=== PATIENT | female | born 1960 | race Caucasian/White ===

== ENCOUNTER 2016-11-05 09:13 | Day surgery (SDC) | payer BC ==
[~2016-11-05] VITALS: Ht 152.4 cm; Wt 115.1 kg
[2016-11-05] MEDS ORDERED: LIDOCAINE 2% (SDV) 5 ML INJ ONE (10:00)
[2016-11-05] MEDS ORDERED: MIDAZOLAM 1 MG/ML 2 ML INJ ONE (10:00)
[2016-11-05] MEDS ORDERED: PROPOFOL 20 ML ONE (10:00)
[2016-11-05] MEDS ORDERED: METFORMIN PO (10:06)
[2016-11-05] MEDS ORDERED: LIPITOR PO (10:06)
[2016-11-05] MEDS ORDERED: IBUPROFEN (10:06)
[2016-11-05] MEDS ORDERED: TRAMADOL PO (10:06)
[2016-11-05] MEDS ORDERED: INSULIN (10:06)
[2016-11-05] MEDS ORDERED: GABAPENTIN PO (10:06)
[2016-11-05 10:11] VITALS: Ht 152.4 cm; Wt 115.1 kg
[2016-11-05 10:15] VITALS: BP 124/72; PULSE 75; RESP 14
--- NOTE | 2016-11-05 10:46 | OPPN ---
Date/Time of Note Date/Time of Note DATE: 11/05/16 TIME: 10:45 Operative Report Preoperative Diagnosis Screening Postoperative Diagnosis Small transverse colon polyp was removed Internal hemorrhoids Operation/Procedure Performed Colonoscopy and biopsy Provider: TORIE MARTINEZ MD Anesthesia Type: MAC Estimated blood loss: none Transfusion Required: no Specimens Transverse colon polyp Grafts/Implants: none Complications: no TORIE MARTINEZ MD Nov 05, 2016 10:46
--- NOTE | 2016-11-05 11:07 | GILP ---
DATE OF PROCEDURE: 11/05/2016 PROCEDURE PERFORMED: Colonoscopy and biopsy. SURGEON: Joshua Freitas MD. PREOPERATIVE DIAGNOSIS: Screening colonoscopy. POSTOPERATIVE DIAGNOSES: 1. Colonoscopy all the way to the cecum. 2. Small transverse colon polyp was removed using the biopsy forceps. 3. Internal hemorrhoids. INDICATION: Ms. Isabel Cuellar is a 56-year-old female patient who was scheduled for screening colonoscopy. The procedure and possible complications were well explained to the patient. She understood and consented to the procedure. DESCRIPTION OF PROCEDURE: Under the influence under the influence of anesthesia, the colonoscope was carefully introduced in the rectum and under direct vision, it was advanced all the way to the cecum. FINDINGS: The patient had a small transverse colon polyp and it was removed using the biopsy forceps. The patient had internal hemorrhoids. She tolerated the procedure very well. There was no complication from the procedure. At the end of procedure, she was awake with stable vital signs and she was discharged home in the care of her family. IMPRESSION: 1. Colonoscopy all the way to the cecum. 2. Small transverse colon polyp was removed. 3. Internal hemorrhoids. PLAN: Screening colonoscopy in 10 years. Dictated By: MD YOLANDE Kay/con/dionne /Document#: [id number]
== END 2016-11-05 16:11 | disposition home or self-care (01) ==
LOC: GIL 09:13
PROVIDERS: ATTEND Internal Medicine Gastroenterology
DX: Z12.11 Encounter for screening for malignant neoplasm of colon (principal); D12.3 Benign neoplasm of transverse colon; K64.8 Other hemorrhoids; E11.9 Type 2 diabetes mellitus without complications; I10 Essential (primary) hypertension; E78.5 Hyperlipidemia, unspecified; E66.9 Obesity, unspecified; Z68.42 Body mass index [BMI] 45.0-49.9, adult
CPT/HCPCS: 45380; 82962; 88305; J2250; Z7610

== ENCOUNTER 2018-07-22 09:21 | Inpatient (IN) | payer BC ==
[~2018-07-22] VITALS: Ht 154.9 cm; Wt 117.8 kg
[2018-07-22] VITALS (33 sets, daily range): BP systolic 97–145; BP diastolic 55–79; PULSE 66–105; RESP 12–23; Ht 154.9 cm; Wt 117.8 kg
[~2018-07-22 09:21] MED LIST: GABAPENTIN PO; IBUPROFEN; INSULIN; LIPITOR PO; METFORMIN PO; TRAMADOL PO
[2018-07-22] MEDS ORDERED: METF100010 PO (10:35)
[2018-07-22] MEDS ORDERED: ATOR20TA38 PO (10:35)
[2018-07-22] MEDS ORDERED: GABA-526 PO (10:36)
[2018-07-22] MEDS ORDERED: INSU100I33 SC (10:39)
[2018-07-22] MEDS ORDERED: LIRA0.6P2 SQ (10:40)
[2018-07-22] MEDS ORDERED: POTA10TA37 PO (10:40)
[2018-07-22] MEDS ORDERED: SPIR25TA PO (10:41)
[2018-07-22] MEDS ORDERED: SOD CHLORIDE 0.9% 1,000 ML IV SCH (11:00)
[2018-07-22] MEDS ORDERED: CEFAZOLIN 2 GM/50 ML (PMX) 50 ML IVPB ONE (11:00)
--- NOTE | 2018-07-22 14:13 | PREAC ---
Date/Time of Note Date/Time of Note DATE: 07/22/18 TIME: 14:10 Anesthesia Eval and Record Evaluation Time Pre-Procedure Interview DATE: 07/22/18 TIME: 14:10 Age 57 Sex female NPO: 8 hrs Preoperative diagnosis right breast ca Planned procedure right radical mastectomy Past Medical History Past Medical History: Includes Endo: Diabetes Musculoskeletal: Osteoarthritis GI: Morbid obesity Surgery & Anesthesia Issues No known issue Meds Anticoagulation: No Beta Irina within 24 hr: No Reason Beta Irina not given: Pt. not on B-Irina Reported Medications Spironolactone* (Aldactone*) 25 Mg Tablet, 25 MG PO DAILY, #30 TAB 07/22/18 Potassium Chloride* (K-Dur*) 10 Meq Tab.prt.sr, 10 MEQ PO DAILY, TAB 07/22/18 Liraglutide (Victoza 3-Jose) 0.6 Mg/0.1 Ml Pen.injctr, 1.8 MG SQ DAILY, SYR 07/22/18 Insulin Glargine,Hum.rec.anlog (Basaglar Kwkinsey U-100) 100 Unit/1 Ml Insuln.pen, 40 UNIT SC QHS, EA 07/22/18 Gabapentin* (Gabapentin*) 600 Mg Tablet, 600 MG PO TID, #90 TAB 07/22/18 Metformin Hcl* (Metformin Hcl*) 1,000 Mg Tablet, 1000 MG PO WITH BREAKFAST DINNE, #60 TAB 07/22/18 Atorvastatin Calcium* (Atorvastatin Calcium*) 20 Mg Tablet, 20 MG PO QHS, #30 TAB 07/22/18 Discontinued Reported Medications [Gabapentin] No Conflict Check, PO 11/05/16 [Lipitor] No Conflict Check, PO 11/05/16 [Tramadol] No Conflict Check, PO 11/05/16 [Ibuprofen] No Conflict Check, 800 MG 11/05/16 [Insulin] No Conflict Check 11/05/16 [Metformin] No Conflict Check, PO 11/05/16 Current Medications Sodium Chloride 1,000 ml @ 75 mls/hr [id number] IV ; Start 07/22/18 at 11:00 Meds reviewed: Yes Allergies Coded Allergies: No Known Allergy (Unverified , 07/22/18) Allergies Reviewed: Yes Labs/Studies Labs Reviewed: Reviewed by anesthesiologist Result Diagram: 07/22/18 1024 07/22/18 1024 Laboratory Tests 07/22/18 10:24 test: N/A Studies: ECG, CXR Pre-procedure Exam Last vitals Vital Signs Date Temp Pulse Resp B/P (MAP) Pulse Ox O2 O2 Flow FiO2 Time Delivery Rate 07/22/18 97.8 85 16 117/71 98 10:37 (86) Airway: Adequate mouth opening, Adequate thyromental dist Mallampati: Mallampati II Teeth: Normal Lung: Normal Heart: Normal ASA Physical Status ASA physical status: 3 Emergency: None Planned Anesthetic General/MAC: LMA Planned Pain Management Parenteral pain med Pre-operative Attestations Prior to commencing anesthesia and surgery, the patient was re-evaluated, there was verification of: *The patient's identity *The results of appropriate recent lab work and preoperative vital signs *The above evaluation not changing prior to induction *Anesthetic plan, risk benefits, alternative and complications discussed with patient/family; questions answered; patient/family understands, accepts and wishes to proceed. BRYN HARE July 22, 2018 14:13
[2018-07-22] MEDS ORDERED: PROPOFOL 20 ML ONE (14:30)
[2018-07-22] MEDS ORDERED: LIDOCAINE 2% (SDV) 5 ML INJ ONE (14:47)
[2018-07-22] MEDS ORDERED: ROCURONIUM 50 MG INJ ONE (14:47)
[2018-07-22] MEDS ORDERED: CEFAZOLIN 1 GM INJ ONE (14:48)
[2018-07-22] MEDS ORDERED: DEXAMETHASONE 4 MG/ML 5 ML INJ ONE (14:50)
[2018-07-22] MEDS ORDERED: ONDANSETRON 4 MG INJ ONE (14:50)
[2018-07-22] MEDS ORDERED: D5W-0.45 NACL + KCL 20 MEQ 1,000 ML IV SCH (15:58)
--- NOTE | 2018-07-22 15:58 | SIPON ---
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
[2018-07-22] MEDS ORDERED: morphine 2 MG INJ IV PRN (16:00)
[2018-07-22] MEDS ORDERED: ONDANSETRON 4 MG INJ IV PRN ×2 (16:00→16:30)
[2018-07-22] MEDS ORDERED: ACETAMINOPHEN 1000MG/100ML IV 100 ML IVPB PRN (16:00)
[2018-07-22] MEDS ORDERED: GLYCOPYRROLATE 0.4 MG INJ ONE (16:02)
[2018-07-22] MEDS ORDERED: NEOSTIGMINE 3 MG/3 ML SYRINGE ONE (16:02)
[2018-07-22] MEDS ORDERED: ALBUTEROL 0.083% (NEB) 2.5 MG/3 ML AMP HHN PRN (16:30)
[2018-07-22] MEDS ORDERED: DIPHENHYDRAMINE 50 MG INJ IV PRN (16:30)
[2018-07-22] MEDS ORDERED: hydrALAzine 20 MG INJ IV PRN (16:30)
[2018-07-22] MEDS ORDERED: HYDROmorphONE 1 MG/5 ML IV SYRINGE IV PRN ×3 (16:30)
[2018-07-22] MEDS ORDERED: OXYCODONE/ACETAMINOPHEN (5/325) TAB PO PRN ×2 (16:30)
[2018-07-22] MEDS ORDERED: LABETALOL HCL 20MG INJ IV PRN (16:30)
[2018-07-22] MEDS ORDERED: METOCLOPRAMIDE 10 MG INJ IV PRN (16:30)
[2018-07-22] MEDS ORDERED: FENTAnyl 50 MCG/ML VIAL IV PRN ×3 (16:30)
[2018-07-22] MEDS ORDERED: EPHEDrine 25 MG/5 ML SYG IV PRN (16:30)
[2018-07-22] MEDS ORDERED: MEPERIDINE 25 MG INJ IV PRN (16:30)
[2018-07-22] MEDS ORDERED: MIDAZOLAM 1 MG/ML 2 ML INJ IV PRN (16:30)
--- NOTE | 2018-07-22 17:14 | OPR ---
DATE OF OPERATION: 07/22/2018 PREOPERATIVE DIAGNOSIS: Extensive ductal carcinoma in situ, right breast. POSTOPERATIVE DIAGNOSIS: Extensive ductal carcinoma in situ, right breast. OPERATION PERFORMED: Right modified radical mastectomy. ANESTHESIA: General. ANESTHESIOLOGIST: Dr. Diamond. SURGEON: Bennett Salmeron MD COOK HELPER MEAT: Kavon Tobar MD INDICATIONS FOR PROCEDURE: The patient is a 57-year-old female who underwent surveillance mammograph y and was found to have extensive and diffuse calcifications spanning a large area of her right breas t. Biopsy confirmed ductal carcinoma in situ. There was a second area away from the primary site, w hich also was very suspicious. This area was not amenable to sterotactic biopsy due to its proximity of the chest wall. However, the patient made the decision that regardless, she wanted to undergo ma stectomy and due to the fact that there was extensive DCIS and possible invasion, decision was made a lso to perform a level 1 lymph node dissection. DESCRIPTION OF PROCEDURE: The patient was brought to the operating theater, placed under general ane sthesia. The right breast and axillary region was prepped and draped in usual sterile fashion. A ge nerous elliptical incision was demarcated around the nipple areolar complex a significant amoun t of the overlying breast skin. Incision was carried out with 15 blade scalpel. Subcutaneous tissue was dissected with cautery. The skin edges were then elevated with Allis Rashel clamps and skin flap s were created using cautery, first superiorly to the clavicle, then medially to the sternal border, inferiorly to the inframammary fold and laterally until the latissimus dorsi muscle was identified th roughout its course. Mastectomy then took place from medial to lateral using cautery at the border o f the pectoralis major muscle. The pectoralis minor muscle was identified. The clavipectoral fascia was incised. A limited level 1 axillary dissection then took place using a combination of cautery a nd the LigaSure device, taking care to preserve the intercostal brachial nerves. Final connective ti ssue attachments to latissimus dorsi muscle were then transected with cautery. Specimen was removed, oriented and sent for permanent pathologic analysis. The wound was irrigated. Minimal residual ble eding was controlled with cautery. Two #10 [place] Alfredo-You drains were then brought through the right mid axillary line, one was cut to size and laid within the axilla, the other was cut to size a nd laid over the pectoralis major muscle. Both drains were secured in place with 2-0 nylon sutures i n standard fashion. The skin was then reapproximated with a deep dermal layer of 4-0 Vicryl sutures in interrupted fashion, followed by final skin approximation with skin josh. The patient tolerate d procedure well. Total blood loss was approximately 50 mL. There were no complications. The patie nt was transported in stable condition to the recovery room where circumferential compression dressin g was applied. Dictated By: BENNETT MADSEN/JANICE Conf#: [id number] DID#: [id number]
[2018-07-22] MEDS ORDERED: KETOROLAC 30 MG INJ IV PRN (20:30)
[2018-07-22] MEDS ORDERED: INSULIN GLARGINE [LANtus] 3 ML PEN SC SCH ×2 (21:00→22:00)
[2018-07-22] MEDS: 1/2 NS + KCL 20 MEQ 1,000 ML IV SCH (22:02)
[2018-07-22] MEDS: ATORVASTATIN 20 MG TAB PO SCH (22:03)
[2018-07-22] MEDS: INSULIN ASPART [NOVOLOG] 3 ML PEN SC SCH (22:06)
[2018-07-22] MEDS: INSULIN GLARGINE [LANTus] (100 UNITS/ML) SYG SC SCH (22:39)
[2018-07-22] MEDS: HYDROCODONE/APAP (5/325) TAB PO PRN (23:54)
[2018-07-23] VITALS (7 sets, daily range): BP systolic 86–114; BP diastolic 50–63; PULSE 65–102; RESP 17–20
[2018-07-23] MEDS: HYDROCODONE/APAP (5/325) TAB PO PRN (01:35)
--- NOTE | 2018-07-23 02:27 | HP ---
DATE OF ADMISSION: 07/22/2018 CHIEF COMPLAINT AND HISTORY OF PRESENT ILLNESS: The patient is a 57-year-old female with history of hypertension, diabetes, dyslipidemia, morbidly obese with a BMI of 49.1, weight of 117 kg. The mary segura was seen by Dr. Salmeron as an outpatient and after she underwent surveillance mammography, the mary segura was found to have extensive and diffuse calcification spanning a large area of her right breast. Biopsy confirmed ductal carcinoma in situ. There was second area from the primary site which was als o very suspicious; however, this area was not amenable to sterotactic biopsy due to its proximity to the chest wall. The patient was brought into hospital today and underwent right modified radical mas tectomy. The patient is being admitted for further evaluation and management. No previous history o f coronary artery disease. No history of congestive heart failure. The patient denied any vomiting. No recent fever or chills. The patient did not have any vomiting since admission. The patient den ied any previous history of stroke. In recovery room, the patient was noted to be desaturating while sedated. The patient had received IV morphine in recovery room, which will be discontinued and the patient will be put on IV Toradol. The patient had received IV fentanyl and Demerol in recovery room . The patient's pain medication will be switched to Toradol. PAST MEDICAL HISTORY: As stated above. ALLERGIES: NO KNOWN DRUG ALLERGIES. SOCIAL HISTORY: No smoking or alcohol. FAMILY HISTORY: Noncontributory. PHYSICAL EXAMINATION: GENERAL: Revealed the patient to be awake, alert, fairly oriented. VITAL SIGNS: Temperature 98.2, pulse 66, respiration 20, blood pressure 107/70, O2 sat 97% on room a ir. HEENT: No eye discharge or redness. Conjunctivae and lids are normal. Oropharynx is clear. NECK: Supple. No mass, no thyromegaly. CHEST: Fairly clear. CARDIOVASCULAR: S1, S2 normal. No murmur. ABDOMEN: Soft, nontender, obese. EXTREMITIES: No edema. NEUROLOGIC: The patient is awake, alert with no gross focal deficit. LABORATORY DATA: WBC 7.5, hemoglobin 13.3, platelet 211. Sodium 143, potassium 4.4, BUN 11, creatin ine 0.4, glucose 122. AST 19, ALT 25, alkaline phosphatase 159. IMPRESSION: 1. Extensive ductal carcinoma in situ, right breast, status post right modified radical mastectomy. 2. Diabetes mellitus. 3. Dyslipidemia. 4. Mild hypertension. PLAN: The patient will be admitted on medical floor. The patient will be started on 1800-calorie AD A diet. I will change her postoperative fluid to half NS. We will continue Lipitor. We will hold o ff on Aldactone as the patient's blood pressure is marginal. We will continue insulin and sliding sc elsa. We will also continue metformin. Further recommendation will depend on patient's hospital cour se. We will continue to follow. Meanwhile SCDs will be used for DVT prophylaxis. Dictated By: CAROLIN CRAIG MD AB/NTS Conf#: [id number] DID#: [id number] CC: DANIEL SALMERON MD;*End*
--- NOTE | 2018-07-23 07:09 | RADRPT ---
Vent Rate: 80 bpm RR Interval: 748 msec [place] Interval: 139 msec QRS Duration: 93 msec QT Interval: 350 msec QTC Interval: 405 msec P-R-T [place]: 55 - 37 - 52 degrees Sinus rhythm...normal Electronically Signed By: Miguel Ángel Ortega
[2018-07-23] MEDS: metFORMIN 500 MG TAB PO SCH ×2 (08:50→18:01)
[2018-07-23] MEDS: INSULIN ASPART [NOVOLOG] 3 ML PEN SC SCH ×5 (08:55→21:12)
--- NOTE | 2018-07-23 09:20 | PN ---
Date/Time of Note Date/Time of Note DATE: 07/23/18 TIME: 09:16 Assessment/Plan VTE Prophylaxis Risk score (from [facility] [place])>0 risk: 13 SCD applied (from [facility] [place]): Yes SCD contraindicated: other Pharmacological prophylaxis: other Pharm contraindication: other Lines/Catheters IV Catheter Type (from [facility]): Peripheral IV Assessment/Plan Assessment/Plan 1. Extensive ductal carcinoma in situ, right breast, status post right modified radical mastectomy. - per sx - IVF 2. Diabetes mellitus. - 1800-calorie ADA diet -continue metformin. 3. Dyslipidemia. - continue Lipitor. 4. Mild hypertension. 5. scd fo DVT prophylaxis Dw Dr Nagel Result Diagram: 07/22/18 1024 07/22/18 1024 Results 24hrs Laboratory Tests Test 07/22/18 10:20 07/22/18 10:24 07/22/18 21:54 07/23/18 01:48 Bedside Glucose 119 424 *H 379 H White Blood Count 7.5 Red Blood Count 4.55 Hemoglobin 13.3 Hematocrit 40.7 Mean Corpuscular 89.5 Volume Mean Corpuscular 29.2 Hemoglobin Mean Corpuscular 32.7 Hemoglobin Concent Red Cell 11.9 Distribution Width Platelet Count 211 Mean Platelet Volume 10.9 H Immature 0.100 Granulocytes % Neutrophils % 46.2 Lymphocytes % 43.4 Monocytes % 5.5 Eosinophils % 4.1 Basophils % 0.7 Nucleated Red Blood 0.0 Cells % Immature 0.010 Granulocytes # Neutrophils # 3.5 Lymphocytes # 3.3 H Monocytes # 0.4 Eosinophils # 0.3 Basophils # 0.1 Nucleated Red Blood 0.0 Cells # Prothrombin Time 11.4 L Prothrombin Time 0.9 Ratio INR International 0.82 Normalized Ratio Activated 26.3 Partial Thromboplast Time Sodium Level 143 Potassium Level 4.4 Chloride Level 107 Carbon Dioxide Level 27 Anion Gap 9 Blood Urea Nitrogen 11 Creatinine 0.49 Est Glomerular > 60 Filtrat Rate mL/min Glucose Level 122 Calcium Level 9.4 Total Bilirubin 0.4 Direct Bilirubin 0.00 Indirect Bilirubin 0.4 Aspartate Amino 19 Transf (AST/SGOT) Alanine 25 Aminotransferase (AL T/SGPT) Alkaline Phosphatase 159 H Total Protein 7.2 Albumin 4.1 Globulin 3.10 Albumin/Globulin 1.32 Ratio Test 07/23/18 08:46 Bedside Glucose 287 H Subjective 24 Hr Interval Summary Constitutional: requiring IVF Eyes: no complaints ENT: no complaints Respiratory: no complaints Cardiovascular: no complaints Gastrointestinal: no complaints Genitourinary: no complaints Skin: no complaints Exam/Review of Systems Exam Vitals Vital Signs Date Temp Pulse Resp B/P (MAP) Pulse Ox O2 O2 Flow FiO2 Time Delivery Rate 07/23/18 98.1 102 18 95/50 (65) 94 Room Air 08:27 07/23/18 2.0 03:45 Intake and Output 07/22/18 07/22/18 07/23/18 1515:00 23:00 07:00 IntakeIntake Total 1300 ml 50 ml 765 ml OutputOutput Total 175 ml 105 ml BalanceBalance 1300 ml -125 ml 660 ml Constitutional: alert, well developed, obese Psych: nl mood/affect Eyes: nl lids, nl sclera ENMT: nl external ears & nose Neck: non-tender Respiratory: clear to auscultation Cardiovascular: nl pulses, other (s1s2) Gastrointestinal: soft, non-tender Musculoskeletal: nl extremities to inspection Extremities: normal pulses Neurological: nl speech Skin: other (sp ro=ight brest sx- DDI; X2 COLEEN noted) Lymph: nontender Results Results 24hrs Laboratory Tests Test 07/22/18 10:20 07/22/18 10:24 07/22/18 21:54 07/23/18 01:48 Bedside Glucose 119 424 *H 379 H White Blood Count 7.5 Red Blood Count 4.55 Hemoglobin 13.3 Hematocrit 40.7 Mean Corpuscular 89.5 Volume Mean Corpuscular 29.2 Hemoglobin Mean Corpuscular 32.7 Hemoglobin Concent Red Cell 11.9 Distribution Width Platelet Count 211 Mean Platelet Volume 10.9 H Immature 0.100 Granulocytes % Neutrophils % 46.2 Lymphocytes % 43.4 Monocytes % 5.5 Eosinophils % 4.1 Basophils % 0.7 Nucleated Red Blood 0.0 Cells % Immature 0.010 Granulocytes # Neutrophils # 3.5 Lymphocytes # 3.3 H Monocytes # 0.4 Eosinophils # 0.3 Basophils # 0.1 Nucleated Red Blood 0.0 Cells # Prothrombin Time 11.4 L Prothrombin Time 0.9 Ratio INR International 0.82 Normalized Ratio Activated 26.3 Partial Thromboplast Time Sodium Level 143 Potassium Level 4.4 Chloride Level 107 Carbon Dioxide Level 27 Anion Gap 9 Blood Urea Nitrogen 11 Creatinine 0.49 Est Glomerular > 60 Filtrat Rate mL/min Glucose Level 122 Calcium Level 9.4 Total Bilirubin 0.4 Direct Bilirubin 0.00 Indirect Bilirubin 0.4 Aspartate Amino 19 Transf (AST/SGOT) Alanine 25 Aminotransferase (AL T/SGPT) Alkaline Phosphatase 159 H Total Protein 7.2 Albumin 4.1 Globulin 3.10 Albumin/Globulin 1.32 Ratio Test 07/23/18 08:46 Bedside Glucose 287 H Medications Medication Current Medications Ondansetron HCl (Zofran Inj) 4 mg Q6H PRN IV NAUSEA AND/OR VOMITING; Start 07/22/18 at 16:00 Acetaminophen 100 ml @ 400 mls/hr Q6H PRN IVPB PAIN LEVEL 1-5; Start 07/22/18 at 16:00; Stop 07/23/18 at 15:59 Acetaminophen/ Hydrocodone Bitart (Latty (5/325)) 1 tab Q4H PRN PO MODERATE PAIN LEVEL 4-6 Last administered on 07/23/18at 01:35; Admin Dose 1 TAB; Start 07/22/18 at 20:30 Ketorolac Tromethamine (Toradol) 30 mg Q6H PRN IV PAIN LEVEL 1-3; Start 07/22/18 at 20:30; Stop 07/25/18 at 20:29 Atorvastatin Calcium (Lipitor) 20 mg QHS PO Last administered on 07/22/18at 22:03; Admin Dose 20 MG; Start 07/22/18 at 21:00 Metformin HCl (Glucophage) 1,000 mg WITH BREAKFAST DINNE PO Last administered on 07/23/18at 08:50; Admin Dose 1,000 MG; Start 07/23/18 at 07:50 Potassium Chloride/Sodium Chloride 1,000 ml @ 75 mls/hr [id number] IV Last administered on 07/22/18 22:02; Admin Dose 75 MLS/HR; Start 07/22/18 at 21:00 Insulin Aspart (Novolog Insulin Pen) NOVOLOG *MODERATE* ALGORITHM WITH MEALS BEDTIME SC Last administered on 07/23/18at 08:55; Admin Dose 8 UNIT; Start 07/22/18 at 21:00 Insulin Glargine (Lantus) 20 units HS SC Last administered on 07/22/18at 22:39; Admin Dose 20 UNITS; Start 5/30/19 at 22:15 BIJAL KEITH July 23, 2018 09:20
[2018-07-23] MEDS: 1/2 NS + KCL 20 MEQ 1,000 ML IV SCH ×2 (10:20→23:40)
--- NOTE | 2018-07-23 11:10 | PAC ---
Date/Time of Note Date/Time of Note DATE: 07/23/18 TIME: 11:10 Post-Anesthesia Notes Post-Anesthesia Note Last documented vital signs Vital Signs Date Temp Pulse Resp B/P (MAP) Pulse Ox O2 O2 Flow FiO2 Time Delivery Rate 07/23/18 98.1 102 18 95/50 (65) 94 Room Air 08:27 07/23/18 2.0 03:45 Activity: WNL Respiratory function: WNL Cardiovascular function: WNL Mental status: Baseline Pain reasonably controlled: Yes Hydration appropriate: Yes Nausea/Vomiting absent: Yes BRYN HARE July 23, 2018 11:10
[2018-07-23] MEDS ORDERED: GLUCOSE GEL 15 GRAM TUBE BUCCAL PRN (13:30)
[2018-07-23] MEDS ORDERED: DEXTROSE 50% 50 ML SYRINGE IV PRN ×2 (13:30)
[2018-07-23] MEDS ORDERED: GLUCOSE GEL 15 GRAM TUBE PO PRN ×2 (13:30)
[2018-07-23] MEDS ORDERED: GLUCAGON 1 MG INJ IM PRN (13:30)
--- NOTE | 2018-07-23 18:38 | PN ---
DATE: 07/23/2018 Postop day #1 status post right modified radical mastectomy. SUBJECTIVE: No specific complaint. Pain is under control. Has been out of bed walking around. OBJECTIVE: Awake, alert, oriented. Vital signs: Temperature 98.1, heart rate 102, respirations 18, blood pressure 95/50, saturation 94% in room air. LABORATORY DATA: Chemistry today, POC glucose has been very high 320, fluctuating. Hematology was not done today. PHYSICAL EXAMINATION: The patient is not acutely distressed. Vital signs as above, stable. INTAKE AND OUTPUT: The patient has 2 Alfredo-You drains put in from time of operation yesterday afternoon till 7 am today 240 mL of fluid and since morning they have drained about 40 mL of drainage which is bloody drainage. Dressing is intact. It is not too tight. The tubings of the Alfredo-You was milked to make sure they are functioning. ASSESSMENT AND PLAN: A 57-year-old female with BMI of 49, postop day #1 status post right modified radical mastectomy. The drainage is bloody; therefore, we are going to keep the patient at least overnight. Today, check CBC and BMP for sugar tomorrow. If everything is stable, probably can be discharged tomorrow. Dictated By: LAYNE BROWER MD PS/NTS Conf#: [id number] DID#: [id number]
[2018-07-23] MEDS: INSULIN GLARGINE [LANTus] (100 UNITS/ML) SYG SC SCH (21:11)
[2018-07-23] MEDS: ATORVASTATIN 20 MG TAB PO SCH (21:12)
[2018-07-24 02:15] VITALS: BP 91/51; PULSE 88; RESP 20
[2018-07-24] MEDS: HYDROCODONE/APAP (5/325) TAB PO PRN ×2 (04:34→16:17)
[2018-07-24 07:50] VITALS: BP 92/50; PULSE 80; RESP 16
[2018-07-24] MEDS: metFORMIN 500 MG TAB PO SCH (08:50)
[2018-07-24] MEDS: INSULIN ASPART [NOVOLOG] 3 ML PEN SC SCH ×3 (08:51→11:40)
--- NOTE | 2018-07-24 12:02 | PN ---
Date/Time of Note Date/Time of Note DATE: 07/24/18 TIME: 12:01 Assessment/Plan VTE Prophylaxis Risk score (from Ns)>0 risk: 6 SCD applied (from [facility] [place] Yes Pharmacological prophylaxis: LMWH Lines/Catheters IV Catheter Type (from [facility]): [place] Urinary Cath still in place: No Assessment/Plan Hospital Course 1. Extensive ductal carcinoma in situ, right breast, status post right modified radical mastectomy. - per sx - IVF 2. Diabetes mellitus. - 1800-calorie ADA diet -continue metformin. 3. Dyslipidemia. - continue Lipitor. 4. Mild hypertension. 5. scd fo DVT prophylaxis Result Diagram: 07/24/18 0434 07/24/18 0434 Results 24hrs Laboratory Tests Test 07/23/18 12:09 07/23/18 18:02 07/23/18 21:10 07/24/18 04:34 Bedside Glucose 320 H 234 H 212 White Blood Count 7.9 Red Blood Count 2.94 #L Hemoglobin 8.6 #L Hematocrit 26.2 #L Mean Corpuscular 89.1 Volume Mean Corpuscular 29.3 Hemoglobin Mean Corpuscular 32.8 Hemoglobin Concent Red Cell Distribution 12.1 Width Platelet Count 175 Mean Platelet Volume 11.7 H Immature Granulocytes 0.500 H % Neutrophils % 47.4 Lymphocytes % 44.9 Monocytes % 6.1 Eosinophils % 0.6 Basophils % 0.5 Nucleated Red Blood 0.0 Cells % Immature Granulocytes 0.040 H # Neutrophils # 3.7 Lymphocytes # 3.5 H Monocytes # 0.5 Eosinophils # 0.1 Basophils # 0.0 Nucleated Red Blood 0.0 Cells # Sodium Level 140 Potassium Level 4.3 Chloride Level 109 Carbon Dioxide Level 25 Anion Gap 6 Blood Urea Nitrogen 25 #H Creatinine 0.58 Est Glomerular > 60 Filtrat Rate mL/min Glucose Level 215 Calcium Level 8.4 Test 07/24/18 08:24 Bedside Glucose 206 Subjective 24 Hr Interval Summary Free Text/Dictation Patient denies any abdominal pain Exam/Review of Systems Exam Vitals Vital Signs Date Temp Pulse Resp B/P (MAP) Pulse Ox O2 O2 Flow FiO2 Time Delivery Rate 07/24/18 98.7 80 16 92/50 (64) 96 Room Air 07:50 07/23/18 2.0 03:45 Intake and Output 07/23/18 07/23/18 07/24/18 1515:00 23:00 07:00 IntakeIntake Total 400 ml 1020 ml 350 ml OutputOutput Total 190 ml BalanceBalance 400 ml 830 ml 350 ml Constitutional: well developed Head: normocephalic, atraumatic Neck: supple Respiratory: clear to auscultation Cardiovascular: regular rate and rhythm Gastrointestinal: soft, non-tender Extremities: normal pulses Results Results 24hrs Laboratory Tests Test 07/23/18 12:09 07/23/18 18:02 07/23/18 21:10 07/24/18 04:34 Bedside Glucose 320 H 234 H 212 White Blood Count 7.9 Red Blood Count 2.94 #L Hemoglobin 8.6 #L Hematocrit 26.2 #L Mean Corpuscular 89.1 Volume Mean Corpuscular 29.3 Hemoglobin Mean Corpuscular 32.8 Hemoglobin Concent Red Cell Distribution 12.1 Width Platelet Count 175 Mean Platelet Volume 11.7 H Immature Granulocytes 0.500 H % Neutrophils % 47.4 Lymphocytes % 44.9 Monocytes % 6.1 Eosinophils % 0.6 Basophils % 0.5 Nucleated Red Blood 0.0 Cells % Immature Granulocytes 0.040 H # Neutrophils # 3.7 Lymphocytes # 3.5 H Monocytes # 0.5 Eosinophils # 0.1 Basophils # 0.0 Nucleated Red Blood 0.0 Cells # Sodium Level 140 Potassium Level 4.3 Chloride Level 109 Carbon Dioxide Level 25 Anion Gap 6 Blood Urea Nitrogen 25 #H Creatinine 0.58 Est Glomerular > 60 Filtrat Rate mL/min Glucose Level 215 Calcium Level 8.4 Test 07/24/18 08:24 Bedside Glucose 206 Medications Medication Current Medications Ondansetron HCl (Zofran Inj) 4 mg Q6H PRN IV NAUSEA AND/OR VOMITING; Start 07/22/18 at 16:00 Acetaminophen/ Hydrocodone Bitart (Valentine (5/325)) 1 tab Q4H PRN PO MODERATE PAIN LEVEL 4-6 Last administered on 07/24/18at 04:34; Admin Dose 1 TAB; Start 07/22/18 at 20:30 Atorvastatin Calcium (Lipitor) 20 mg QHS PO Last administered on 07/23/18at 21:12; Admin Dose 20 MG; Start 07/22/18 at 21:00 Metformin HCl (Glucophage) 1,000 mg WITH BREAKFAST DINNE PO Last administered on 07/24/18at 08:50; Admin Dose 1,000 MG; Start 07/23/18 at 07:50 Potassium Chloride/Sodium Chloride 1,000 ml @ 75 mls/hr [id number] IV Last administered on 07/22/18at 22:02; Admin Dose 75 MLS/HR; Start 07/22/18 at 21:00 Insulin Glargine (Lantus) 20 units HS SC Last administered on 07/23/18at 21:11; Admin Dose 20 UNITS; Start 07/22/18 at 22:15 Insulin Aspart (Novolog Insulin Pen) 10 unit AC BREAKFAST DINNER SC Last administered on 07/24/18at 08:52; Admin Dose 10 UNIT; Start 07/23/18 at 17:25 Insulin Aspart (Novolog Insulin Pen) NOVOLOG *MILD* ALGORITHM WITH MEALS BEDTIME SC Last administered on 07/24/18at 08:51; Admin Dose 2 UNIT; Start 07/23/18 at 17:55 Miscellaneous Information 1 ea NOTE XX ; Start 07/23/18 at 13:30 Glucose (Glutose) 15 gm Q15M PRN PO DECREASED GLUCOSE; Start 07/23/18 at 13:30 Glucose (Glutose) 22.5 gm Q15M PRN PO DECREASED GLUCOSE; Start 07/23/18 at 13:30 Dextrose (D50w Syringe) 25 ml Q15M PRN IV DECREASED GLUCOSE; Start 07/23/18 at 13:30 Dextrose (D50w Syringe) 50 ml Q15M PRN IV DECREASED GLUCOSE; Start 07/23/18 at 13:30 Glucagon (Glucagen) 1 mg Q15M PRN IM DECREASED GLUCOSE; Start 07/23/18 at 13:30 Glucose (Glutose) 15 gm Q15M PRN BUCCAL DECREASED GLUCOSE; Start 07/23/18 at 13:30 KAILA MONTELONGO Jul 24, 2018 12:02
[2018-07-24] MEDS: 1/2 NS + KCL 20 MEQ 1,000 ML IV SCH (12:39)
--- NOTE | 2018-07-24 20:31 | PN ---
DATE: 07/24/2018 Postop day #2 status post right breast modified radical mastectomy. SUBJECTIVE: No complaint. OBJECTIVE: GENERAL: Awake, alert and oriented. VITAL SIGNS: Temperature maximum 98.7, heart rate 80, respirations 16, blood pressure 92/50, saturat ion 96% on room air. CLINICAL EXAMINATION: HEART: Regular. LUNGS: Clear. ABDOMEN: Soft. Chest wall: The dressing is intact. The round dressing is not too tight. Alfredo-You drains are in place. There are some drainage which is more bloody than being serosanguineous. The drainage in the past 24 hours up to 7 a.m. today has been 190 mL. LABORATORY DATA: BUN and creatinine and chemistry normal. WBC 7900 with 47% neutrophils, segmented is normal, but hemoglobin which was done today at 4:30 a.m. is 8.6, hematocrit 26.2. Two days ago, o n the day of admission, was 13.3 and 40.7 hematocrit. Considering that there was not a lot of bleedi ng during the operation and also in the past 2 days drainage though has been bloody, but has not been that much; therefore, this drop in hemoglobin is not acceptable. We have to either find out the jasbir rce of it or maybe it is wrong, so we are going to repeat it and if repeat is better, we may discharg e the patient. Dictated By: LAYNE WELLS/JANICE Conf#: [id number] DID#: [id number]
--- NOTE | 2018-07-28 16:12 | DS ---
Date/Time of Note Date/Time of Note DATE: 07/28/18 TIME: 16:11 Discharge Summary Admission/Discharge Info Admit Date/Time July 22, 2018 at 15:59 Discharge Date/Time Jul 24, 2018 at 17:00 Discharge Diagnosis 1. Extensive ductal carcinoma in situ, right breast, status post right modified radical mastectomy. - per sx - IVF 2. Diabetes mellitus. - 1800-calorie ADA diet -continue metformin. 3. Dyslipidemia. - continue Lipitor. 4. Mild hypertension. 5. scd fo DVT prophylaxis Patient Condition: Fair Consults surgery Procedures mastectomy Hx of Present Illness Karen with breast cancer comes in for elective mastectomy. Hospital Course Ivaniaeitthomas with breast cancer comes in for elective mastectomy. Patient tolerated the procedure and when felt to be stable, patient was sent home. 1. Extensive ductal carcinoma in situ, right breast, status post right modified radical mastectomy. - per sx - IVF 2. Diabetes mellitus. - 1800-calorie ADA diet -continue metformin. 3. Dyslipidemia. - continue Lipitor. 4. Mild hypertension. 5. scd fo DVT prophylaxis Home Meds Reported Medications Spironolactone* (Aldactone*) 25 Mg Tablet, 25 MG PO DAILY, #30 TAB 07/22/18 Potassium Chloride* (K-Dur*) 10 Meq Tab.prt.sr, 10 MEQ PO DAILY, TAB 07/22/18 Liraglutide (Victoza 3-Jose) 0.6 Mg/0.1 Ml Pen.injctr, 1.8 MG SQ DAILY, SYR 07/22/18 Insulin Glargine,Hum.rec.anlog (Basaglar Kwikpen U-100) 100 Unit/1 Ml Insuln.pen, 40 UNIT SC QHS, EA 07/22/18 Gabapentin* (Gabapentin*) 600 Mg Tablet, 600 MG PO TID, #90 TAB 07/22/18 Metformin Hcl* (Metformin Hcl*) 1,000 Mg Tablet, 1000 MG PO WITH BREAKFAST DINNE, #60 TAB 07/22/18 Atorvastatin Calcium* (Atorvastatin Calcium*) 20 Mg Tablet, 20 MG PO QHS, #30 TAB 07/22/18 Discontinued Reported Medications [Gabapentin] No Conflict Check, PO 11/05/16 [Lipitor] No Conflict Check, PO 11/05/16 [Tramadol] No Conflict Check, PO 11/05/16 [Ibuprofen] No Conflict Check, 800 MG 11/05/16 [Insulin] No Conflict Check 11/05/16 [Metformin] No Conflict Check, PO 11/05/16 Primary Care Provider Not On Staff Doctor KAILA MONTELONGO Jul 28, 2018 16:12
== END 2018-07-24 17:00 | disposition home or self-care (01) | DRG 582 ==
LOC: SDS 09:21 → REC 15:59 → SDS 15:59 → MS1 18:00
PROVIDERS: ADMIT Surgery Surgical Oncology; ATTEND Surgery Surgical Oncology
PROC: 07T50ZZ Resection of Right Axillary Lymphatic, Open Approach (ICD-10-PCS; 2018-07-22)
PROC: 0HTT0ZZ Resection of Right Breast, Open Approach (ICD-10-PCS; principal; 2018-07-22 13:30)
DX: D05.11 Intraductal carcinoma in situ of right breast (principal); Z68.42 Body mass index [BMI] 45.0-49.9, adult; E11.9 Type 2 diabetes mellitus without complications; E78.5 Hyperlipidemia, unspecified; I10 Essential (primary) hypertension; E66.01 Morbid (severe) obesity due to excess calories
CPT/HCPCS: 71045; 80048; 80053; 82962; 85025; 85610; 85730; 88309; 93005; J0690; J1100; J1170; J1200; J1815; J1885; J2250; J2270; J2405; J2710; J3010; J3480